=== PATIENT | female | born 1960 | race Hispanic/Latino ===

== ENCOUNTER 2021-06-07 11:19 | Outpatient (CLI) | payer MEDICARE, MEDICAID | END 2021-06-07 11:20 | disposition home or self-care (01) | LOC: CSHRAD 11:19 | PROVIDERS: ATTEND Family Medicine | DX: M25.559 Pain in unspecified hip (principal); M54.9 Dorsalgia, unspecified; M16.0 Bilateral primary osteoarthritis of hip; M47.816 Spondylosis without myelopathy or radiculopathy, lumbar region | CPT/HCPCS: 72100 ==

== ENCOUNTER 2025-03-02 09:07 | Emergency (ER) | payer OTHER, MEDICAID ==
[2025-03-02] MEDS ORDERED: Ketorolac Tromethamine 30 MG (1 mL) VIAL ONE (10:39)
[2025-03-02] MEDS ORDERED: Gabapentin 300 MG CAP ONE (10:41)
== END 2025-03-02 11:00 | disposition home or self-care (01) ==
LOC: CSHERS 09:07
DX: M79.651 Pain in right thigh (principal); I10 Essential (primary) hypertension; F17.210 Nicotine dependence, cigarettes, uncomplicated
CPT/HCPCS: 73502; 73564; J1885; 96372; 99283